=== PATIENT | female | born 1980 | race Two or more races ===

== ENCOUNTER 2021-12-13 05:22 | Day surgery (SDC) | payer OTHER ==
[~2021-12-13] VITALS: Ht 175.3 cm; Wt 86.2 kg
[2021-12-13] MEDS ORDERED: NAPR500T14 PO (08:29)
[2021-12-13] MEDS ORDERED: MORGIDOX100 MG PO (08:29)
== END 2021-12-14 12:30 | disposition home or self-care (01) ==
LOC: CIR.AMB 05:22
PROVIDERS: ATTEND Obstetrics & Gynecology
DX: N84.0 Polyp of corpus uteri (principal); Z20.822 Contact with and (suspected) exposure to COVID-19; J45.909 Unspecified asthma, uncomplicated; Z86.16 Personal history of COVID-19

== ENCOUNTER 2024-09-06 17:17 | Emergency (ER) | payer OTHER ==
[~2024-09-06] VITALS: Ht 175.3 cm; Wt 76.2 kg
[~2024-09-06 17:17] MED LIST: MORGIDOX100 MG PO; NAPR500T14 PO
[2024-09-06] MEDS ORDERED: KETOROLAC TROMETHAMINE 60 MG VIAL IM ONE ×2 (19:00→19:59)
[2024-09-06] MEDS ORDERED: ORPHENADRINE CITRATE 30 MG/ML AMPUL IM ONE (19:00)
[2024-09-06] MEDS ORDERED: ORPHENADRINE CITRATE 30 MG/ML AMPUL ONE (19:59)
[2024-09-06 20:24] LABS: BASO % 0.5 % (0.1-1.2); EOS # 0.15 (0.04-0.54); EOS % 1.9 % (0.7-7.0); HEMATOCRIT 39.6 % (34.1-44.9); HEMOGLOBIN 13.2 g/dL (11.2-15.7); LYMPH % 20.6 % (19.3-53.1); MEAN CORPUSCULAR HEMOGLOBIN 30.7 pg (25.6-32.2); MONO % 7.7 % (4.7-12.5); NEUT # 5.36 (1.56-6.13); NEUT % 69.2 % (34.0-71.1); PLATELET COUNT 220 K/uL (163-369); RED CELL DISTRIBUTION WIDTH 14.4 % (11.6-14.4)
[2024-09-06 20:29] LABS: CHLORIDE 109 mmol/L (98-107); POTASSIUM 4.04 mEq/L (3.5-5.1); SODIUM 142 mmol/L (136-145)
[2024-09-06 20:32] LABS: INR < 0.93; PARTIAL THROMBOPLASTIN TIME 28.2 SECONDS (22.0-34.0); PROTHROMBIN TIME 10.2 SECONDS (9.0-11.5)
[2024-09-06 20:38] LABS: ALBUMIN 3.4 gm/dL (3.4-5.0); ALKALINE PHOSPHATASE 56 U/L (50-136); ALT/SGPT 26 U/L (12-78); ANION GAP 9 (10.0-20.0); AST/SGOT 18 U/L (15-37); BLOOD UREA NITROGEN 16 mg/dL (7-18); BUN CREA RATIO 21 (7.0-25.0); CALCIUM 9.1 mg/dL (8.5-10.1); CARBON DIOXIDE 28 mEq/L (21-32); CREATININE SERUM 0.75 mg/dL (0.55-1.02); GFR 84.34; GLOBULINA 3.5 G/DL (2.4-3.5); GLUCOSE FASTING 90 mg/dL (65-100); HCG QUANTITATIVE < 1 mUI/mL (1-3); OSMOLALITY SERUM 284 MOSM/KG (275-295); TOTAL PROTEIN 6.9 gm/dL (6.4-8.2)
[2024-09-06 21:35] LABS: PH,URINE 5.5 (5.0-8.0); URINE APPEARANCE Clear; URINE BILIRRUBIN Negative (NEGATIVE); URINE BLOOD Moderate; URINE COLOR Yellow; URINE GLUCOSE Negative (NEGATIVE); URINE KETONE Trace (NEGATIVE); URINE LEUKOCYTE Negative; URINE NITRATE Negative; URINE PROTEIN Negative (NEGATIVE); URINE UROBILINOGEN 0.2 E.U./dl
[2024-09-06 21:43] LABS: URINE BACTERIA 154.2 uL (0.0-1933); URINE EPITHELIAL CELLS 16.1 uL (0.0-38.8); URINE RBC 5.4 uL (0.0-20.8); URINE WBC 7.4 uL (0.0-23.2)
[2024-09-06 22:15] LABS: URINE CAST 0.14 uL (0.0-1.40)
[2024-09-06] MEDS ORDERED: PEPCID AC20 MG PO (22:31)
[2024-09-06] MEDS ORDERED: NEURONTIN800 MG PO (22:31)
== END 2024-09-06 22:56 | disposition home or self-care (01) ==
LOC: ER 17:17
PROVIDERS: General Practice
DX: R10.2 Pelvic and perineal pain (principal); D25.9 Leiomyoma of uterus, unspecified; N83.292 Other ovarian cyst, left side; Z87.09 Personal history of other diseases of the respiratory system